=== PATIENT | female | born 1950 | race Caucasian/White ===

== ENCOUNTER 2018-08-04 08:59 | Day surgery (SDC) | payer MEDICARE, OTHER ==
[~2018-08-04] VITALS: Ht 167.6 cm; Wt 79.8 kg
[~2018-08-04 08:59] MED LIST: ACET500 PO; ALLEGRA ALLERG180 M1 PO; AZO PO; B-COMPLEX WITH1 EAC1 PO; BIOTIN1 MG PO; CHOL10002 PO; CIPRO500 MG PO; COCONUT OIL; DIPH50 PO; FISH OIL 1,0001 EACH PO; LEVSOD88 PO; OXYC5; SUMA25 PO; TRIPLE FLEX CA1 EACH PO; TUMERIC PO; TUMS200 MG PO
--- NOTE | 2018-08-04 09:27 | NUR ---
History, Chart, Medications and Allergies reviewed before start of procedure. Patient confirms NPO status and agrees with scheduled surgery. Lungs clear T/O to Auscultation. Patient reports completing Chlorhexadine shower X2 prior to admission to hospital. Pre-Op teaching done. Pt verbalizes understanding. Patient States Post-Procedure ride home has been arranged.
--- NOTE | 2018-08-04 09:39 | NUR ---
SISTER TO BEDSIDE. CONTENT SPECIALIST REPORT COMPLETED AT BEDSIDE WITH OLI ARITA. SHANTA Osei RN ASSISTED ME WITH PATIENT PREPARATION DUE TO OR BEING DONE WITH PREVIOUS CASE EARLY.
--- NOTE | 2018-08-04 10:33 | NUR ---
08/04/18 1033 Barbara Murrieta 2GRAMS GIVEN BY DR. GAMBINO AT 1000
--- NOTE | 2018-08-04 12:45 | NUR ---
WITH IN 5 MINUTES OF GIVING RX FOR PAIN PATIENT REPRTED PAIN DOWN TO 6/10 AT 10 MINUTES PATIENT REPORTED PAIN AT 4/10 AND 15 MINUTES AFTERWARDS PATIENT REPORTED PAIN AT 2/10
--- NOTE | 2018-08-04 14:55 | NUR ---
Discharge instructions reviewed with patient. Patient verbalizes understanding. Copy given to patient to take home. Patient States Post-Procedure ride home has been arranged. Discharged via wheelchair to private car for ride home.
== END 2018-08-04 23:58 | disposition home or self-care (01) ==
LOC: ORSCMMR 08:59 → ORD 10:30 → ORSCMMR 23:58
PROVIDERS: Surgery
PROC: 8E0W4CZ Robotic Assisted Procedure of Trunk Region, Percutaneous Endoscopic Approach (ICD-10-PCS; principal; 2018-08-04 10:30)
PROC: 0YUE4JZ Supplement Bilateral Femoral Region with Synthetic Substitute, Percutaneous Endoscopic Approach (ICD-10-PCS; principal; 2018-08-04 10:30)
PROC: 0YUA4JZ Supplement Bilateral Inguinal Region with Synthetic Substitute, Percutaneous Endoscopic Approach (ICD-10-PCS; principal; 2018-08-04 10:30)
DX: K41.20 Bilateral femoral hernia, without obstruction or gangrene, not specified as recurrent (principal); K40.20 Bilateral inguinal hernia, without obstruction or gangrene, not specified as recurrent; N18.3 Chronic kidney disease, stage 3 (moderate); Z79.899 Other long term (current) drug therapy
CPT/HCPCS: 49650; 49659; S2900; C1781; J0690; J1100; J1885; J2250; J2405; J2550; J3010; J7120

== ENCOUNTER 2019-09-24 07:41 | Day surgery (SDC) | payer MEDICARE ==
[~2019-09-24] VITALS: Ht 167.6 cm; Wt 79.1 kg
[~2019-09-24 07:41] MED LIST changes: +SYNTHROID100 MC1 PO; +SYNTHROID88 MCG PO
[2019-09-24] MEDS ORDERED: Aspir 8181 MG PO (07:54)
== END 2019-09-24 10:00 | disposition home or self-care (01) ==
LOC: ORSCSDS 07:41
PROVIDERS: Internal Medicine Gastroenterology
PROC: 0DBH8ZX Excision of Cecum, Via Natural or Artificial Opening Endoscopic, Diagnostic (ICD-10-PCS; principal; 2019-09-24 09:00)
PROC: 0DBN8ZX Excision of Sigmoid Colon, Via Natural or Artificial Opening Endoscopic, Diagnostic (ICD-10-PCS; principal; 2019-09-24 09:00)
DX: Z12.11 Encounter for screening for malignant neoplasm of colon (principal); D12.0 Benign neoplasm of cecum; D12.5 Benign neoplasm of sigmoid colon; K57.30 Diverticulosis of large intestine without perforation or abscess without bleeding; Z85.3 Personal history of malignant neoplasm of breast; Z85.41 Personal history of malignant neoplasm of cervix uteri; Z85.850 Personal history of malignant neoplasm of thyroid; Z79.899 Other long term (current) drug therapy
CPT/HCPCS: 88305; J0330; J0461; J2405; J2704; J7120

== ENCOUNTER 2020-05-10 15:25 | Emergency (ER) | payer OTHER, MEDICARE ==
[~2020-05-10] VITALS: Ht 170.2 cm; Wt 78.5 kg
[~2020-05-10 15:25] MED LIST changes: +Aspir 8181 MG PO
[2020-05-10 17:20] LABS: Calcium, Ionized (POC) 1.19 mmol/L (1.10-1.46); Chloride (POC) 103 mmol/L (98-108); Creatinine (POC) 0.9 mg/dL (0.6-1.0); Glucose (ISTAT POC) 101 mg/dL (70-99); Hemoglobin (POC) 13.9 g/dL (12.0-16.0); Sodium (POC) 139 mmol/L (135-148); Total CO2 (POC) 22 mmol/L (21-32)
[2020-05-10] MEDS ORDERED: Roxicodone5 MG PO (18:32)
== END 2020-05-10 18:51 | disposition home or self-care (01) ==
LOC: ER 15:25
PROVIDERS: Physician Assistant
DX: S22.20XA Unspecified fracture of sternum, initial encounter for closed fracture (principal); E03.9 Hypothyroidism, unspecified; Z88.2 Allergy status to sulfonamides; Z88.8 Allergy status to other drugs, medicaments and biological substances; Z88.5 Allergy status to narcotic agent; Z88.1 Allergy status to other antibiotic agents; Z79.82 Long term (current) use of aspirin; Z79.899 Other long term (current) drug therapy; V43.52XA Car driver injured in collision with other type car in traffic accident, initial encounter; Y92.410 Unspecified street and highway as the place of occurrence of the external cause
CPT/HCPCS: 36415; 71260; 80047; 85014; 96374-59; 99285-25; A9270; J3010; J7120; Q9967

== ENCOUNTER → 2021-06-17 | Outpatient (CLI) | payer MEDICARE ==
[~2021-06-17] MED LIST changes: +CEFD300 PO; +Percocet 5-3251 EACH PO; +Roxicodone5 MG PO; +SULTRIDS PO
== END | disposition home or self-care (01) ==
LOC: LAB SHORT 18:12 → LAB 18:12
DX: S21.002A Unspecified open wound of left breast, initial encounter (principal)
CPT/HCPCS: 87070; 87075; 87205

== ENCOUNTER 2021-06-21 10:19 | Emergency (ER) | payer MEDICARE ==
[~2021-06-21] VITALS: Ht 170.2 cm; Wt 79.4 kg
[~2021-06-21 10:19] MED LIST changes: -CEFD300 PO; -Percocet 5-3251 EACH PO; -SULTRIDS PO
[2021-06-21 10:54] LABS: BASOPHILS ABSOLUTE AUTO 0.04 K/mm3 (0.00-0.23); BASOPHILS PERCENT AUTO 1 % (0-2); EOSINOPHILS ABSOLUTE AUTO 0.09 K/mm3 (0.00-0.68); EOSINOPHILS PERCENT AUTO 2 % (0-6); Hematocrit 39.8 % (33.0-51.0); Hemoglobin 12.8 g/dL (11.5-16.0); IMMATURE GRAN ABSOLUTE AUTO 0.02 K/mm3 (0.00-0.10); IMMATURE GRAN PERCENT AUTO 0 % (0-1); LYMPHOCYTES ABSOLUTE AUTO 2.04 K/mm3 (0.84-5.20); LYMPHOCYTES PERCENT AUTO 35 % (21-46); MONOCYTES ABSOLUTE AUTO 0.59 K/mm3 (0.16-1.47); MONOCYTES PERCENT AUTO 10 % (4-13); Mean Corpuscular HGB 30.4 pg (26.0-34.0); Mean Corpuscular HGB Conc 32.2 g/dL (31.5-36.5); Mean Corpuscular Volume 95 fL (80-100); NEUTROPHILS ABSOLUTE AUTO 3.03 K/mm3 (1.96-9.15); NEUTROPHILS PERCENT AUTO 52 % (41-73); Platelet Count 304 K/mm3 (150-400); RDW Coefficient Variation 13.6 % (11.7-14.2); RDW Standard Deviation 47.5 fL (35.1-46.3); Red Blood Cell Count 4.21 M/mm3 (3.80-5.20); White Blood Cell Count 5.81 K/mm3 (4.00-11.30)
[2021-06-21] MEDS ORDERED: SULTRIDS PO (11:07)
[2021-06-21] MEDS ORDERED: CEFD300 PO (11:07)
[2021-06-21 11:41] LABS: Albumin, Blood 3.5 g/dL (3.4-5.0); Albumin/Globulin Ratio 0.9 (0.8-1.8); Bilirubin, Total 0.4 mg/dL (0.1-1.0); Calcium, Blood 9.8 mg/dL (8.5-10.1); Creatinine, Blood 1.15 mg/dL (0.40-1.00); Potassium, Blood 4.3 mmol/L (3.5-5.5); Total Protein, Blood 7.5 g/dL (6.4-8.2)
[2021-06-21] MEDS ORDERED: Percocet 5-3251 EACH PO (11:59)
== END 2021-06-21 12:25 | disposition home or self-care (01) ==
LOC: ER 10:19
PROVIDERS: Physician Assistant
DX: N61.0 Mastitis without abscess (principal); E03.9 Hypothyroidism, unspecified; Z85.3 Personal history of malignant neoplasm of breast; Z88.8 Allergy status to other drugs, medicaments and biological substances; Z79.899 Other long term (current) drug therapy; Z88.5 Allergy status to narcotic agent; Z79.82 Long term (current) use of aspirin
CPT/HCPCS: 36415; 76604; 80053; 85025; 99284-25

== ENCOUNTER → 2022-01-15 | Outpatient (CLI) | payer MEDICARE, OTHER ==
[~2022-01-15] MED LIST changes: +CEFD300 PO; +Percocet 5-3251 EACH PO; +SULTRIDS PO
== END | disposition home or self-care (01) ==
LOC: LAB SHORT 10:03
DX: N39.0 Urinary tract infection, site not specified (principal)
CPT/HCPCS: 87077; 87086; 87186

== ENCOUNTER 2023-08-03 08:40 | Day surgery (SDC) | payer MEDICARE, OTHER ==
[~2023-08-03] VITALS: Ht 170.2 cm; Wt 86.9 kg
[2023-08-03] VITALS (14 sets, daily range): BP systolic 106–132; BP diastolic 61–76
[~2023-08-03 08:40] MED LIST changes: +CHOLEST-OFF PO
--- NOTE | 2023-08-03 10:06 | NUR ---
History, Chart, Medications and Allergies reviewed before start of procedure. Lungs clear T/O to Auscultation. Patient confirms NPO status and agrees with scheduled surgery. Pre-Op teaching done. Pt verbalizes understanding. Patient reports completing Chlorhexadine shower X2 prior to admission to hospital.
--- NOTE | 2023-08-03 11:22 | NUR ---
08/03/23 1122 Viktoriya Pedro PRIOR TO ARRIVING IN THE OR THE PATIENT RECEVIED VANCO 1GM IV IN THE PREOP SETTING.
--- NOTE | 2023-08-03 14:15 | NUR ---
PATIENT ARRIVED FROM PACU TODAY. POD 0 LEFT TOTAL KNEE PATIENT IS A&OX4. VS ARE WNL AND IS ON RA. PATIENT HAD A SPINAL DURING THE PROCEDURE AND REPORTS "I HAVE SOME SENSATION BUT STILL FEELS PRETTY NUMB". WHEN ASKED THOUGH PATIENT IS ABLE TO MOVE ALL FINGERS AND TOES. PAIN SO FAR AT THIS TIME IS MANAGED WITH PO TYLENOL AND OXY. HER LEFT KNEE HAS ALEX WRAP THAT IS C/D/I WITH POLAR PACK IN PLACE. SHE IS TOLERATING SMALL AMOUNTS OF PO INTAKE. SHE IS CURRENTLY LAYING IN BED WITH CALL LIGHT IN REACH.
--- NOTE | 2023-08-03 16:18 | NUR ---
SHIFT SUMMARY: POD 0 LEFT TOTAL KNEE PATIENT IS A&OX4. VS ARE WNL AND IS ON RA. PATIENTS PAIN IS MANAGED SO FAR WITH PO TYLENOL AND OXY. HER LEFT KNEE HAS ALEX WRAP THAT IS C/D/I WITH POLAR PACK IN PLACE. SHE IS TOLERATING PO INTAKE AND DENIES NAUSEA OR VOMITING. SHE IS ABLE TO MOVE HER LEGS MORE COMPARED TO WHEN SHE FIRST CAME OUT FROM PACU. SHE IS CURRENTLY LAYING IN BED WITH CALL LIGHT IN REACH.
[2023-08-04 03:43] VITALS: BP 104/59
--- NOTE | 2023-08-04 06:26 | NUR ---
POD 1 S/P L TKA. PT VSS T/O NIGHT. PEDAL PULSES AND CAP REFILL WNL, PT DENIED N/T. DRESSING CDI. PAIN MGD W/5MG OXYCODONE AND SCHEDULED MEDS W/REP RELIEF. PT TEMITOPE PO, IS VOIDING URINE W/O DIFFICULTY. PT AMB IN HALLS W/SBA, TEMITOPE WELL. DR HOSKINS IN TO CHANGE DRESSING THIS AM. PLAN TO MOBILIZE W/PT AND DC HOME WHEN CLEARED.
[2023-08-04 06:30] LABS: BASOPHILS ABSOLUTE AUTO 0.01 K/mm3 (0.00-0.23); BASOPHILS PERCENT AUTO 0 % (0-2); EOSINOPHILS ABSOLUTE AUTO 0.01 K/mm3 (0.00-0.68); EOSINOPHILS PERCENT AUTO 0 % (0-6); Hematocrit 32.3 % (33.0-51.0); Hemoglobin 10.8 g/dL (11.5-16.0); IMMATURE GRAN ABSOLUTE AUTO 0.02 K/mm3 (0.00-0.10); IMMATURE GRAN PERCENT AUTO 0 % (0-1); LYMPHOCYTES ABSOLUTE AUTO 1.24 K/mm3 (0.84-5.20); LYMPHOCYTES PERCENT AUTO 15 % (21-46); MONOCYTES ABSOLUTE AUTO 0.83 K/mm3 (0.16-1.47); MONOCYTES PERCENT AUTO 10 % (4-13); Mean Corpuscular HGB 30.5 pg (26.0-34.0); Mean Corpuscular HGB Conc 33.4 g/dL (31.5-36.5); Mean Corpuscular Volume 91 fL (80-100); Mean Platelet Volume 10.6 fL (9.1-12.4); NEUTROPHILS ABSOLUTE AUTO 6.15 K/mm3 (1.96-9.15); NEUTROPHILS PERCENT AUTO 75 % (41-73); Platelet Count 217 K/mm3 (150-400); RDW Coefficient Variation 13.8 % (11.7-14.2); RDW Standard Deviation 46.5 fL (35.1-46.3); Red Blood Cell Count 3.54 M/mm3 (3.80-5.20); White Blood Cell Count 8.26 K/mm3 (4.00-11.30)
[2023-08-04 06:53] LABS: Bun/Creatinine Ratio 22.9 (12.0-20.0); Calcium, Blood 8.8 mg/dL (8.5-10.1); Creatinine, Blood 1.09 mg/dL (0.40-1.00); Magnesium, Blood 2.1 mg/dL (1.6-2.4); Potassium, Blood 4.2 mmol/L (3.5-5.5)
[2023-08-04 07:30] VITALS: BP 105/66
[2023-08-04] MEDS ORDERED: Aspir 8181 MG PO (07:51)
[2023-08-04] MEDS ORDERED: OXAYDO5 M1 PO (07:51)
[2023-08-04] MEDS ORDERED: PROM12.5S PO (07:52)
[2023-08-04] MEDS ORDERED: SULTRIDS PO (07:53)
--- NOTE | 2023-08-04 09:58 | NUR ---
pt with nausea and emesis after breakfast and therapy. phenergan prescription called into pharmacy per pt request. pt reports nausea begin after eating breakfast and is improving now.
--- NOTE | 2023-08-04 13:30 | NUR ---
discharge pod 1 l tka pt with nausea from eating hospital food but reports wanting to still go home as she thinks she will feel better. remains fairly painful but reports tolerable enough to discharge home. all instructions gone over with patient. all belongings with patient. scripts picked up prior to discharge. dressing remains cdi.
== END 2023-08-04 13:32 | disposition home or self-care (01) ==
LOC: ORSCMMR 08:40 → SURS 14:56 → ORSCMMR 08-04 13:32
PROVIDERS: Orthopaedic Surgery
PROC: 0SRD0J9 Replacement of Left Knee Joint with Synthetic Substitute, Cemented, Open Approach (ICD-10-PCS; principal; 2023-08-03 10:45)
DX: M17.12 Unilateral primary osteoarthritis, left knee (principal); M17.0 Bilateral primary osteoarthritis of knee; E78.00 Pure hypercholesterolemia, unspecified; Z79.899 Other long term (current) drug therapy
CPT/HCPCS: 36415; 73560-LT; 80048; 83735; 85025; 97110; 97112; 97116; 97162; 97530; A9270; C1713; C1776; J0171; J0690; J0735; J1100; J1885; J2250; J2371; J2405; J2704; J2795; J3010; J3370; J7120

== ENCOUNTER → 2024-09-03 | Outpatient (CLI) | payer MEDICARE, OTHER ==
[~2024-09-03] MED LIST changes: +OXAYDO5 M1 PO; +PROM12.5S PO
== END ==
LOC: LAB SHORT 10:28 → LAB 10:28
DX: R30.0 Dysuria (principal)
CPT/HCPCS: 87077; 87086; 87186

== ENCOUNTER → 2024-09-14 | Outpatient (CLI) | payer MEDICARE, OTHER ==
[2024-09-14 19:22] LABS: BASOPHILS ABSOLUTE AUTO 0.05 K/mm3 (0.00-0.23); BASOPHILS PERCENT AUTO 1 % (0-2); EOSINOPHILS PERCENT AUTO 3 % (0-6); Hematocrit 38.1 % (33.0-51.0); Hemoglobin 12.7 g/dL (11.5-16.0); IMMATURE GRAN ABSOLUTE AUTO 0.02 K/mm3 (0.00-0.10); IMMATURE GRAN PERCENT AUTO 0 % (0-1); LYMPHOCYTES ABSOLUTE AUTO 2.34 K/mm3 (0.84-5.20); LYMPHOCYTES PERCENT AUTO 36 % (21-46); MONOCYTES ABSOLUTE AUTO 0.56 K/mm3 (0.16-1.47); MONOCYTES PERCENT AUTO 9 % (4-13); Mean Corpuscular HGB 31.1 pg (26.0-34.0); Mean Corpuscular HGB Conc 33.3 g/dL (31.5-36.5); Mean Corpuscular Volume 93 fL (80-100); Mean Platelet Volume 11.6 fL (9.1-12.4); NEUTROPHILS ABSOLUTE AUTO 3.26 K/mm3 (1.96-9.15); NEUTROPHILS PERCENT AUTO 51 % (41-73); Platelet Count 267 K/mm3 (150-400); RDW Coefficient Variation 14.1 % (11.7-14.2); RDW Standard Deviation 48.2 fL (35.1-46.3); Red Blood Cell Count 4.09 M/mm3 (3.80-5.20); White Blood Cell Count 6.43 K/mm3 (4.00-11.30)
[2024-09-14 20:03] LABS: Albumin, Blood 3.6 g/dL (3.4-5.0); Bilirubin, Total 0.4 mg/dL (0.1-1.0); Bun/Creatinine Ratio 15.1 (12.0-20.0); Calcium, Blood 9.5 mg/dL (8.5-10.1); Creatinine, Blood 1.19 mg/dL (0.40-1.00); Globulin, Blood 3.6 g/dL (2.2-4.0); Potassium, Blood 4.2 mmol/L (3.5-5.5); Total Protein, Blood 7.2 g/dL (6.4-8.2)
== END | disposition home or self-care (01) ==
LOC: LAB SHORT 19:00 → LAB 19:00
PROVIDERS: Nurse Practitioner Family
DX: E03.9 Hypothyroidism, unspecified (principal); R53.81 Other malaise
CPT/HCPCS: 80053; 84443; 85025

== ENCOUNTER → 2025-02-15 | Outpatient (CLI) | payer MEDICARE, OTHER ==
[~2025-02-15] MED LIST changes: +PROBIOTIC1 EA14
[2025-02-15 13:07] LABS: BASOPHILS ABSOLUTE AUTO 0.03 K/mm3 (0.00-0.23); BASOPHILS PERCENT AUTO 1 % (0-2); EOSINOPHILS ABSOLUTE AUTO 0.14 K/mm3 (0.00-0.68); EOSINOPHILS PERCENT AUTO 3 % (0-6); Hematocrit 41.7 % (33.0-51.0); Hemoglobin 13.6 g/dL (11.5-16.0); IMMATURE GRAN ABSOLUTE AUTO 0.01 K/mm3 (0.00-0.10); IMMATURE GRAN PERCENT AUTO 0 % (0-1); LYMPHOCYTES ABSOLUTE AUTO 2.07 K/mm3 (0.84-5.20); LYMPHOCYTES PERCENT AUTO 43 % (21-46); MONOCYTES ABSOLUTE AUTO 0.61 K/mm3 (0.16-1.47); MONOCYTES PERCENT AUTO 13 % (4-13); Mean Corpuscular HGB Conc 32.6 g/dL (31.5-36.5); Mean Corpuscular Volume 93 fL (80-100); NEUTROPHILS ABSOLUTE AUTO 1.94 K/mm3 (1.96-9.15); NEUTROPHILS PERCENT AUTO 41 % (41-73); NRBC ABSOLUTE 0.00 K/mm3 (0.00-0.02); NRBC Auto 0.0 /100 WBC (0.0-0.2); Platelet Count 268 K/mm3 (150-400); RDW Coefficient Variation 13.8 % (11.7-14.2); RDW Standard Deviation 47.0 fL (35.1-46.3)
[2025-02-15 14:49] LABS: Alanine Aminotransfer (ALT/SGP 29.0 U/L (12-78); Albumin, Blood 3.7 g/dL (3.4-5.0); Albumin/Globulin Ratio 1.1 (0.8-1.8); Anion Gap 8.0 mmol/L (3-11); Aspartate Aminotrans (AST/SGOT 20.0 U/L (12-37); Bilirubin, Total 0.4 mg/dL (0.1-1.0); Blood Urea Nitrogen 24.0 mg/dL (8-24); CO2, Blood 25.0 mmol/L (21-32); Calcium, Blood 9.2 mg/dL (8.5-10.1); Chloride, Blood 108.0 mmol/L (98-108); Creatinine, Blood 0.9 mg/dL (0.40-1.00); Globulin, Blood 3.5 g/dL (2.2-4.0); Glucose, Blood 82.0 mg/dL (70-99); Potassium, Blood 4.2 mmol/L (3.5-5.5); Sodium, Blood 137.0 mmol/L (136-145); Thyroid Stimulating Hormone 1.72 uIU/mL (0.360-4.800); Total Protein, Blood 7.2 g/dL (6.4-8.2)
== END ==
LOC: LAB 11:13 → LAB SHORT 11:13
PROVIDERS: Nurse Practitioner Family
DX: E03.9 Hypothyroidism, unspecified (principal); R53.81 Other malaise
CPT/HCPCS: 80053; 84436; 84443; 85025